=== PATIENT | male | born 1955 | race Caucasian/White ===

== ENCOUNTER 2017-04-16 16:51 | Inpatient (IN) | payer BC, OTHER ==
[~2017-04-16] VITALS: Ht 182.9 cm; Wt 120.8 kg
--- NOTE | ~2017-04-16 | S ---
[facility] [place] [address] SURGICAL PATH RPT PROCEDURE Name: PAULO MARIA Room #: 444-P ADM IN M.R.#: [id number] Admission: 04/16/17 Date of : 51 Discharge: Report #: [id number] Path Case #: [id number] PATHOLOGY REPORT COLLECTION DATE: 04/20/2017 RECEIVED DATE: 04/21/2017 SUBMITTING PHYS: Dr. Harry Rojas OTHER PHYS: Dr. Julio Cesar Holguin ADDENDUM REPORT (Order Date: 04/24/2017 13:46) ADDENDUM COMMENT: This addendum is issued subsequent to submitting additional sections of the skin margin as well as the bone margin. Both show viable tissue. The originally rendered diagnosis remains unchanged. (IUV:magalis; 04/24/2017) ELECTRONICALLY SIGNED BY: Roya Hathaway M.D. DATE/TIME:04/24/2017 16:07 SPECIMEN(S) RECEIVED: A.Left fifth toe and metatarsal * * * * * * * * * * * * FINAL DIAGNOSIS: Toe, left fifth toe and metatarsal, amputation: - Gangrenous necrosis along with ulceration as well as marked acute inflammation extending into underlying bone. - Focal osteomyelitis. - Separate fragment of metatarsal bone measuring 5.1 cm, with an unremarkable gross appearance. (IUV:db; 04/23/2017) PATHOLOGIST: Roya Hathaway M.D. REPORT ELECTRONICALLY SIGNED BY: Roya Hathaway M.D. DATE/TIME: 04/23/2017 15:43 * * * * * * * * * * * * GROSS PATHOLOGY: The specimen is received in formalin, labeled "Paulo Maria, left fifth toe and metatarsal" is a toe amputation specimen and separately received metatarsal bone. The metatarsal bone measures 5.1 x 2.1 x 1.5 cm. Outer surface has a bustillo to pink red, ragged to trabeculated appearance. The cut surface is bustillo to pink-red and trabeculated. [address] [address] SURGICAL PATH RPT PROCEDURE Name: PAULO MARIA Room #: 444-P ADM IN M.R.#: [id number] Admission: 04/16/17 Date of : 51 Discharge: Report #: [id number] Path Case #: [id number] mass lesions or cystic structures are noted. The toe amputation specimen measures 5.5 x 3.5 x 2.7 cm. The nail is present, brown yellow and thickened. The outer surface has a purple mccoy, desiccated to desquamated appearance. Thickened, leathery, brown-black necrotic tissue is noted throughout. The necrotic tissue extends to the soft tissue margin. A small strip of normal appearing skin is partially noted along the margin. The underlying soft tissue is brown green to bustillo red, softened and congested. The underlying bone has a brown red, trabeculated, congested appearance. No additional abnormalities are noted. A cross section of the specimen and section from the margin are submitted in cassette A1 after fixation and decalcification. (P; 04/22/2017) After initial microscopic examination, a longitudinal, full-thickness section of the amputation specimen is entirely submitted in cassettes A2-A4 after fixation and decalcification. ([facility]; 04/23/2017) CLINICAL HISTORY: Gangrene left fifth toe INITIAL CPT CODE(S): A; 37522, 53279 Professional services performed by [employer] at [facility] [address], [place] [address] Technical services performed by [employer] at [address] [place] [address], [address], [place] [address]. [facility] [address] [place] [address] PHONE: [phone] DIRECTOR: Lamont Ramirez M.D. * * * END OF REPORT * * *
--- NOTE | ~2017-04-16 | HC ---
[facility] [place] [address] CONSULTATION Name: ROBERTA MARIA Room #: 444-P ADM IN M.R.#: [id number] Admission: 04/16/17 Attend Phys: Julio Cesar Deluca Discharge: Date of : 51 Report #: [id number] THIS REPORT FOR: //name// CC: Julio Cesar Holguin DATE OF SERVICE: 04/19/2017 WOUND CARE CONSULTATION NOTE REASON FOR CONSULTATION: Cellulitis of left foot in a patient with diabetes mellitus type 2 and diabetic neuropathy. HISTORY: The patient is a very pleasant 62-year-old gentleman with diabetes mellitus type 2 who takes metformin but not insulin. He does have a history of diabetic neuropathy. The patient has not had any diabetic foot complications in the past. The patient did present himself to the Emergency Room at [facility] on 04/16 with a wound of his left foot with some pain, redness, swelling, a blackened area of skin and some bloody drainage, which he noted on his sock. The patient was admitted through the Emergency Room on 04/16, afebrile with the pulse of 75, creatinine of 1.3 and white blood count of 12.9. He has been on intravenous vancomycin and Zosyn. The patient states that since the time of his admission, the redness of the foot has actually decreased and its extent is limited now to the dorsum of his foot. The patient has been seen by the orthopedic team, Dr. Lowery on 04/17 and 04/18. The patient has been seen today by the orthopedic team, Dr. Harry Rojas. Wound care was asked to see the patient to see whether any form of local wound care will be helpful and also for the opinion as to whether surgery would be indicated. PAST MEDICAL HISTORY: 1. Obesity. 2. Diabetes mellitus type 2. The patient takes metformin. He does not take insulin. The patient denies any history of myocardial infarction or stroke. He is treated for hypertension with lisinopril and metoprolol. Hypercholesterolemia treated with Zocor. 3. History of hypertension. 4. History of diabetic peripheral neuropathy. HOME MEDICATIONS: Include lisinopril/hydrochlorothiazide, metformin 500 mg p.o. b.i.d., metoprolol 75 mg daily, Zocor 20 mg daily and aspirin 81 mg daily. RADIOGRAPHIC STUDIES: X-ray of the foot shows metallic foreign body, the plantar aspect over the fifth metatarsophalangeal joint. No bony destruction. LABORATORIES: White blood count 12.9. Creatinine 1.3. [address] [address] CONSULTATION Name: ROBERTA MARIA Room #: 444-P [facility] IN M.R.#: [id number] Admission: 04/16/17 Attend Phys: Julio Cesar Deluca Discharge: Date of : 51 Report #: [id number] PHYSICAL EXAMINATION: GENERAL: Shows an alert and healthy-appearing gentleman who appears his stated age of 62. VITAL SIGNS: Temperature 37.1, pulse 65, respirations 18 and blood pressure 135/57. HEENT: Mucous membranes are moist. NECK: Supple. CHEST: Shows nonlabored respirations. ABDOMEN: Obese and soft. EXTREMITIES: Upper extremities are normal. Examination of lower extremities shows that dorsalis pedis pulses are not easily palpable. Examination of the left foot shows erythema on the dorsum of the left foot, extending from the distal fifth metatarsal towards the midfoot. There is also a blister on the dorsum of the foot near the reddened area. The fifth toe is cyanotic and dusky. There is a black necrotic wound at the base of the fifth toe measuring approximately 5 cm x 3 cm extending from the dorsum of the foot laterally and then extending to the plantar surface of the foot. Slight pressure on this area shows some clear drainage, which is foul and malodorous. Clinical exam is consistent with gangrene. Extent of underlying necrosis is indeterminant. IMPRESSION AND PLAN: Diabetes mellitus type 2 with peripheral neuropathy and gangrenous wound at the base of the left fifth toe. Clinically, this is a soft tissue gangrene with a foul odor, spreading cellulitis to the dorsum of the foot. Discussed the case with Dr. Harry Roajs and I would recommend aggressive surgical intervention with debridement of necrotic tissue. Dr. Rojas indicated he may perform amputation of the left fifth toe, removal of all gangrenous tissue and do left fifth toe ray amputation. Would recommend leaving the wound open for local wound care. When the wound is clean, then we can perform wound VAC therapy. The patient will require arterial assessment of his lower extremities to assess for healing potential. Dr. Rojas and I discussed toe amputation and debridement, leaving open wound. In this situation, we will continue with IV antibiotics. Urgent surgery is being planned by Dr. Rojas. Would care team will follow. <ELECTRONICALLY SIGNED> By: Sanya Lagunas MD 04/20/17 1057 1605 1713 Sanya Lagunas MD /nt
--- NOTE | ~2017-04-16 | O ---
[facility] [place] [address] OPERATIVE REPORT Name: ROBERTA MARIA Room #: 444-P ADM IN M.R.#: [id number] Admission: 04/16/17 Attend Phys: Julio Cesar Deluca Discharge: Date of : 51 Report #: [id number] THIS REPORT FOR: //name// CC: Julio Cesar Holguin DATE OF SERVICE: 04/24/2017 PREOPERATIVE DIAGNOSIS: Left foot diabetic wound with skin edge necrosis. POSTOPERATIVE DIAGNOSIS: Left foot diabetic wound with skin edge necrosis. PROCEDURE: Debridement of left diabetic foot wound down to the fascia. SURGEON: Harry Rojas MD. LEAD SUPPLY WORKER: Patricia Mckinley PA-C. ANESTHESIA: LMA. ESTIMATED BLOOD LOSS: 10 mL. COMPLICATIONS: None. SPECIMENS: None. CONDITION UPON LEAVING THE OPERATING ROOM: Stable. INDICATIONS FOR PROCEDURE: The patient is a 61-year-old gentleman who has had diabetic left foot wound who previously had undergone fifth ray amputation with debridement of the eschar. He has been getting dressing changes on the floor and has developed wound edge necrosis of his wound and it was felt that debridement of this area was necessary to facilitate wound healing. DESCRIPTION OF PROCEDURE: Risks, benefits, alternatives, complications were discussed in detail with the patient including but not limited to risk of anesthesia, risk of damage to nerves or blood vessels, risk for continued infection and need for higher level amputation. Informed consent was obtained from the patient. Left foot was appropriately marked in the preoperative holding area. He was brought to the operating room and placed in supine position on operating room table. LMA anesthesia was induced without complication. He previously was on Zosyn for antibiotics. Left foot and lower extremity was prepped and draped in normal sterile fashion. Timeout was performed properly identifying the patient and procedure as well as the instrumentation. All in the operating room were in agreement. There was edge necrosis of the dorsal anterior aspect of the wound edge as well as the dorsal [facility] [address] [place] [address] OPERATIVE REPORT Name: ROBERTA MARIA Room #: 444-P [facility] IN ..#: [id number] Admission: 04/16/17 Attend Phys: Julio Cesar Deluca Discharge: Date of : 53 Report #: [id number] proximal wound edge and this was trimmed back with a 10 blade back to a bleeding skin edge. In addition, some of the deeper tissues that appeared necrotic were debrided sharply with a #10 blade down to the fascia. There was no exposed bone noted. This wound was then thoroughly irrigated with normal saline using pulse lavage. The wound was then dressed with Kerlix gauze soaked in Dakin solution and 4 x 4s, ABD, Webril and David wrap were applied. The patient tolerated this procedure well and went to the recovery room under the care of anesthesia postoperatively. By: 1128 1141 Harry Rojas MD /nt
--- NOTE | ~2017-04-16 | O ---
[facility] [place] [address] OPERATIVE REPORT Name: ROBERTA MARIA Room #: 444-P ADM IN M.R.#: [id number] Admission: 04/16/17 Attend Phys: Julio Cesar Deluca Discharge: Date of : 51 Report #: [id number] THIS REPORT FOR: //name// CC: Julio Cesar Holguin DATE OF SERVICE: 04/20/2017 PREOPERATIVE DIAGNOSIS: Left small toe gangrene with eschar. POSTOPERATIVE DIAGNOSES: 1. Left small toe gangrene with eschar. 2. Left lateral foot abscess. PROCEDURE: 1. Left fifth ray amputation. 2. Open wound packing of the left foot. SURGEON: Harry Rojas MD JUNIOR BOOKKEEPER: Patricia Mckinley PA-C ANESTHESIA: General. TOURNIQUET TIME: 13 minutes. SPECIMENS: Cultures were taken and sent. ESTIMATED BLOOD LOSS: 125 mL. SPECIMENS: None. CONDITION UPON LEAVING THE OPERATING ROOM: Stable. INDICATIONS FOR PROCEDURE: The patient is a 62-year-old gentleman who has diabetes. About a week or so ago, he developed necrotic tissue over his lateral foot with progressive discoloration of his small toe. He came into the hospital and was started on IV antibiotics. He developed an eschar over his lateral foot at the base of the fifth toe. Bone scan was performed showing to have no obvious osteomyelitis but there clearly was gangrene of the toe with possible abscess. After discussion with him and his , they elected for left fifth ray and possible fourth ray amputation as needed. DESCRIPTION OF PROCEDURE: Risks, benefits, alternatives, complications were discussed in detail with the patient including but not limited to risk of anesthesia, risk of damage to nerves, arteries, blood vessels, risk for [facility] [address] [place] [address] OPERATIVE REPORT Name: ROBERTA MARIA Room #: 444-P [facility] IN ..#: [id number] Admission: 04/16/17 Attend Phys: Julio Cesar Deluca Discharge: Date of : 51 Report #: [id number] infection, bleeding, risk for continued trouble with and need for further amputation. Informed consent was obtained from the patient. Left foot was appropriately marked in the preoperative holding area. He was brought to the operating room and placed in supine position on operating room table. LMA anesthesia was induced without complication. IV vancomycin was given for preoperative antibiotics. Tourniquet was placed on the left thigh. Left lower extremity was prepped and draped in normal sterile fashion. Timeout was performed properly identifying the patient and procedure as well as the instrumentation. All in the operating room were in agreement. An incision around the base of the small toe to include the rim of the scar was made with a 10 blade. This incision was then taken horizontally centered over the fifth metatarsal to the base of the fifth metatarsal. The small toe and eschar were then removed in 1 unit. Once we got the deep tissue, there was purulence noted with foul smelling and cultures of this were taken. The small toe was then amputated and sent to pathology. Dissection was then taken around the fifth metatarsal with Bovie cautery and this was skeletonized and the fifth metatarsal was amputated at its base, leaving the base intact. There was an abscess that tracked up the dorsum of the foot about 4 cm that was explored and cleaned. The wound was then thoroughly irrigated with normal saline. The incision of the lateral foot was closed with 3-0 nylon and the open wound was then packed with Kerlix, soaked in Dakin solution and dressings of ABD, Kerlix and David wrap were applied. The patient tolerated this procedure well and went to the recovery room under care of anesthesia postoperatively. <ELECTRONICALLY SIGNED> By: Harry Rojas MD 04/22/17 0725 0949 1115 Harry Rojas MD /nt
--- NOTE | ~2017-04-16 | HC ---
[facility] [place] [address] CONSULTATION Name: ROBERTA MARIA Room #: 444-P ADM IN M.R.#: [id number] Admission: 04/16/17 Attend Phys: Julio Cesar Deluca Discharge: Date of : 51 Report #: [id number] THIS REPORT FOR: //name// CC: Julio Cesar Holguin REASON FOR CONSULTATION: I was asked to evaluate concerning left fifth diabetic foot infection status post ray amputation. HISTORY OF PRESENT ILLNESS: The patient is a 62-year-old with underlying history of diabetes, hypertension, peripheral neuropathy. He presented on 04/16/2017 with increased pain, swelling and eschar over the lateral left foot and fifth toe. No specific trauma was identified predating this. During his evaluation, he had evidence of metallic foreign body in the soft tissues about the fifth MTP joint. This was resuscitated yesterday with a ray amputation. There was evidence of purulence at the operative site. There was ultrasound done before showing no venous obstruction. Arterial studies revealed biphasic to monophasic waveforms to within the distal left lower extremity with monophasic waveforms in the dorsalis pedis. No hemodynamically significant stenosis identified. Operative culture so far are revealing group B streptococcus. Gram stain showed moderate WBCs, many RBCs and few gram-positive cocci. Blood cultures remained negative. Perioperatively, the patient has been on vancomycin and Zosyn. Initially had fever that has resolved with maximum temperature of 100.1 degrees late last evening. ALLERGIES: None known. MEDICATIONS: As noted on his MAR including the vancomycin and Zosyn. PAST MEDICAL HISTORY: Obesity, diabetes, peripheral neuropathy, hypertension. FAMILY HISTORY: Noncontributory. SOCIAL HISTORY: He is a nonsmoker, no significant alcohol intake. REVIEW OF SYSTEMS: No cardiopulmonary, GI or complaints. PHYSICAL EXAMINATION: VITAL SIGNS: Afebrile and hemodynamically stable. GENERAL: Alert, cooperative and pleasant, in no acute distress. He was moderately obese. EXTREMITIES: Left lower extremity was evaluated with orthopedic surgery present. He had large wound to be the lateral left foot with areas of tissue necrosis and some dusky tissue laterally. He had erythema involving the dorsal forefoot and laterally. There was serous drainage. No granulation tissue yet present. He had decreased pulses in the foot. Both popliteal artery pulse was normal. No swelling or erythema up into the thigh. [address] [address] CONSULTATION Name: ROBERTA MARIA Room #: 444-P ADM IN M.R.#: [id number] Admission: 04/16/17 Attend Phys: Julio Cesar Deluca Discharge: Date of : 51 Report #: [id number] HEENT: Unremarkable. CHEST: Clear. HEART: Regular. ABDOMEN: Soft. LABORATORY STUDIES AND IMAGING STUDIES: As noted above. Cultures as noted above. Sodium 136, potassium 3.2, bicarbonate 33, creatinine 0.8. Hemoglobin 12.5, WBC 10.5, platelet count 304,000. Vancomycin trough was 14. IMPRESSION: Postoperative day #1 status post left fifth toe ray amputation for diabetic foot infection and abscess. I am still concerned about small vessel ischemia to the surrounding tissues. So far group B Streptococcus has been identified. No evidence of a large vessel obstruction on noninvasive arterial studies. PLAN: Recommend continuing IV antibiotic therapy. We will need to continue observation in the hospital to ensure the other surrounding areas of tissue would not need further debridement. I have discussed this with Orthopedic Surgery. The patient will have a PICC line placed and will continue IV antibiotic therapy with Zosyn pending further culture results. We will marrow antibiotic coverage further once further information is back from microbiology laboratory. <ELECTRONICALLY SIGNED> By: Stuart Kellogg MD 04/23/17 1257 1529 [id number] Stuart Kellogg MD /nt
[~2017-04-16 16:51] MED LIST: ANALGESIC325 MG PO; GLUCOPHAGE1000 MG PO; LISINOPRIL-HCT1 EAC2 PO; TOPROL XL25 MG PO; ZOCOR 20 MG TAB20 M1 PO
[2017-04-16 16:54] VITALS: BP 158/77
[2017-04-16] MEDS ORDERED: ASPIR 8181 M1 PO (17:18)
[2017-04-16 17:47] LABS: HEMATOCRIT 40.7 % (42.0-52.0); HEMOGLOBIN 14.1 gm/dL (14.0-18.0); MANUAL DIFF YES; MCH 30.3 pg (26.0-34.0); MCHC 34.7 g/dL (28.0-37.0); MCV 87.2 fL (80.0-100.0); PLATELET COUNT 307 thou/uL (150-400); RBC 4.66 mil/uL (4.50-6.00); RDW 12.5 % (10.5-14.5); WBC 12.9 thou/uL (4.0-11.0)
[2017-04-16 17:51] LABS: CALCIUM 9.6 mg/dL (8.5-10.1); CREATININE 1.3 mg/dL (0.7-1.3); POTASSIUM 3.6 mmol/L (3.5-5.1)
[2017-04-16 17:56] LABS: ALBUMIN 2.7 g/dL (3.4-5.0); TOTAL BILIRUBIN 0.6 mg/dL (<0.1-1.0); TOTAL PROTEIN 7.6 g/dL (6.4-8.2)
[2017-04-16 18:16] LABS: ABSOLUTE NEUTROPHILS 11.4 thou/uL (1.4-8.2); ANISOCYTOSIS 1+; TOTAL CELL COUNT 100
[2017-04-16 18:17] LABS: MICROCYTES SLIGHT
[2017-04-16 19:43] VITALS: BP 129/49
[2017-04-16 20:31] VITALS: BP 130/60
[2017-04-16 20:50] VITALS: BP 114/61
[2017-04-17 03:45] VITALS: BP 128/63
[2017-04-17 05:42] LABS: HEMATOCRIT 36.7 % (42.0-52.0); HEMOGLOBIN 12.9 gm/dL (14.0-18.0); MCH 30.4 pg (26.0-34.0); MCHC 35.1 g/dL (28.0-37.0); MCV 86.5 fL (80.0-100.0); RBC 4.24 mil/uL (4.50-6.00); RDW 12.2 % (10.5-14.5); WBC 9.5 thou/uL (4.0-11.0)
[2017-04-17 06:10] LABS: CALCIUM 8.7 mg/dL (8.5-10.1); CREATININE 1.1 mg/dL (0.7-1.3); POTASSIUM 3.2 mmol/L (3.5-5.1)
[2017-04-17 09:02] VITALS: BP 126/48
[2017-04-17 16:52] VITALS: BP 105/58
[2017-04-17 21:20] VITALS: BP 120/43
[2017-04-17] MEDS ORDERED: LIPITOR40 MG PO (22:56)
[2017-04-17] MEDS ORDERED: CARVEDILOL12.5 MG PO (22:56)
[2017-04-17] MEDS ORDERED: KLOR-CON 1010 MEQ PO ×2 (22:56→22:57)
[2017-04-17] MEDS ORDERED: COZAAR 50 MG TA50 M2 PO (22:58)
[2017-04-17] MEDS ORDERED: CHLORTHALIDONE25 MG PO (22:58)
[2017-04-17] MEDS ORDERED: MAXZIDE-25 MG1 EACH PO (22:58)
[2017-04-18 01:07] LABS: GLYCOHEMOGLOBIN (HGB A1C) 12.2 % (4.8-5.6)
[2017-04-18 05:10] VITALS: BP 139/55
[2017-04-18 08:00] VITALS: BP 152/78
[2017-04-18 16:00] VITALS: BP 147/67
[2017-04-18 19:15] VITALS: BP 136/53
[2017-04-19 03:20] VITALS: BP 147/59
[2017-04-19 05:29] LABS: CALCIUM 9.2 mg/dL (8.5-10.1); CREATININE 0.9 mg/dL (0.7-1.3); PHOSPHORUS 4.2 mg/dL (2.5-4.9); POTASSIUM 3.2 mmol/L (3.5-5.1)
[2017-04-19 08:03] VITALS: BP 135/57
[2017-04-19 16:11] VITALS: BP 148/65
[2017-04-19 19:15] VITALS: BP 138/59
[2017-04-20 04:43] VITALS: BP 127/56
[2017-04-20 05:11] LABS: HEMATOCRIT 36.7 % (42.0-52.0); HEMOGLOBIN 12.8 gm/dL (14.0-18.0); MCH 30.4 pg (26.0-34.0); MCV 86.8 fL (80.0-100.0); RBC 4.23 mil/uL (4.50-6.00); RDW 12.2 % (10.5-14.5); WBC 10.5 thou/uL (4.0-11.0)
[2017-04-20 05:23] LABS: CALCIUM 8.8 mg/dL (8.5-10.1); CREATININE 0.8 mg/dL (0.7-1.3); POTASSIUM 3.2 mmol/L (3.5-5.1)
[2017-04-20 05:28] LABS: INR 1.1; PROTIME 11.1 Seconds (9.3-11.4)
[2017-04-20 12:50] VITALS: BP 143/73
[2017-04-20 16:31] VITALS: BP 123/50
[2017-04-20 20:53] VITALS: BP 141/55
[2017-04-20 23:51] VITALS: BP 128/60
[2017-04-21 04:30] VITALS: BP 133/41
[2017-04-21 06:15] LABS: HEMATOCRIT 36.2 % (42.0-52.0); HEMOGLOBIN 12.5 gm/dL (14.0-18.0)
[2017-04-21 08:00] VITALS: BP 140/65
[2017-04-21 16:00] VITALS: BP 143/60
[2017-04-21 20:16] VITALS: BP 146/55
[2017-04-22 04:29] VITALS: BP 135/72
[2017-04-22 08:20] VITALS: BP 130/71
[2017-04-22 15:46] VITALS: BP 120/52
[2017-04-22 20:00] VITALS: BP 105/56
[2017-04-23 04:00] VITALS: BP 120/60
[2017-04-23 08:02] VITALS: BP 141/67
[2017-04-23 17:20] VITALS: BP 151/72
[2017-04-23 19:20] VITALS: BP 145/64
[2017-04-24 04:00] VITALS: BP 134/64
[2017-04-24 08:00] VITALS: BP 134/68
[2017-04-24 10:28] VITALS: BP 129/76
[2017-04-24 12:38] VITALS: BP 111/57
[2017-04-24] MEDS ORDERED: ZOSYN 4.5 GRAM4.5 GM IV (17:06)
[2017-04-24] MEDS ORDERED: HUMALOG100 UNIT/1 SUBQ ×2 (17:07)
[2017-04-24] MEDS ORDERED: LANTUS100 UNIT/M SUBQ (17:07)
== END 2017-04-24 18:37 | DRG 617 ==
LOC: ER 16:51 → EROBS 18:54 → 4S 18:54
PROVIDERS: Emergency Medicine; Hospitalist; Nurse Practitioner Acute Care; Orthopaedic Surgery
PROC: 0Y6N0ZF Detachment at Left Foot, Partial 5th Ray, Open Approach (ICD-10-PCS; principal; 2017-04-20)
PROC: 02HV33Z Insertion of Infusion Device into Superior Vena Cava, Percutaneous Approach (ICD-10-PCS; 2017-04-21)
PROC: B548ZZA Ultrasonography of Superior Vena Cava, Guidance (ICD-10-PCS; 2017-04-21)
PROC: 0JBR0ZZ Excision of Left Foot Subcutaneous Tissue and Fascia, Open Approach (ICD-10-PCS; 2017-04-24)
DX: E11.621 Type 2 diabetes mellitus with foot ulcer (principal); L03.116 Cellulitis of left lower limb; E87.1 Hypo-osmolality and hyponatremia; L02.612 Cutaneous abscess of left foot; I96 Gangrene, not elsewhere classified; I10 Essential (primary) hypertension; E11.42 Type 2 diabetes mellitus with diabetic polyneuropathy; E11.65 Type 2 diabetes mellitus with hyperglycemia; E66.9 Obesity, unspecified; E78.5 Hyperlipidemia, unspecified; Z79.899 Other long term (current) drug therapy; Z79.4 Long term (current) use of insulin; Z68.36 Body mass index [BMI] 36.0-36.9, adult
CPT/HCPCS: 10195; 27000; 50010; 50101; 50386; 50951; 53078; 56527; 57091; 62110; 62900; 70005

== ENCOUNTER → 2017-05-20 | Outpatient (CLI) | payer BC, OTHER ==
[~2017-05-20] MED LIST changes: +ASPIR 8181 M1 PO; +CARVEDILOL12.5 MG PO; +CHLORTHALIDONE25 MG PO; +COZAAR 50 MG TA50 M2 PO; +HUMALOG100 UNIT/1 SUBQ; +KLOR-CON 1010 MEQ PO; +LANTUS100 UNIT/M SUBQ; +LIPITOR40 MG PO; +MAXZIDE-25 MG1 EACH PO; +ZOSYN 4.5 GRAM4.5 GM IV
== END ==
LOC: HYPER 06:54
DX: T81.31XA Disruption of external operation (surgical) wound, not elsewhere classified, initial encounter (principal); E11.621 Type 2 diabetes mellitus with foot ulcer; L97.511 Non-pressure chronic ulcer of other part of right foot limited to breakdown of skin; Z79.4 Long term (current) use of insulin; Z79.84 Long term (current) use of oral hypoglycemic drugs; Y83.8 Other surgical procedures as the cause of abnormal reaction of the patient, or of later complication, without mention of misadventure at the time of the procedure

== ENCOUNTER → 2017-05-29 | Outpatient (CLI) | payer BC, OTHER | LOC: HYPER 07:04 | DX: T81.31XD Disruption of external operation (surgical) wound, not elsewhere classified, subsequent encounter (principal); E11.621 Type 2 diabetes mellitus with foot ulcer; L97.521 Non-pressure chronic ulcer of other part of left foot limited to breakdown of skin; Z68.31 Body mass index [BMI] 31.0-31.9, adult; Z79.4 Long term (current) use of insulin; Z79.84 Long term (current) use of oral hypoglycemic drugs; Y83.8 Other surgical procedures as the cause of abnormal reaction of the patient, or of later complication, without mention of misadventure at the time of the procedure ==

== ENCOUNTER → 2017-06-05 | Outpatient (CLI) | payer BC, OTHER | LOC: HYPER 07:11 | DX: T81.31XD Disruption of external operation (surgical) wound, not elsewhere classified, subsequent encounter (principal); E11.621 Type 2 diabetes mellitus with foot ulcer; L97.521 Non-pressure chronic ulcer of other part of left foot limited to breakdown of skin; Z86.31 Personal history of diabetic foot ulcer; Z79.4 Long term (current) use of insulin; Z79.84 Long term (current) use of oral hypoglycemic drugs; Y83.8 Other surgical procedures as the cause of abnormal reaction of the patient, or of later complication, without mention of misadventure at the time of the procedure ==

== ENCOUNTER → 2017-06-19 | Outpatient (CLI) | payer BC, OTHER | LOC: HYPER 07:11 | DX: T87.81 Dehiscence of amputation stump (principal); E11.621 Type 2 diabetes mellitus with foot ulcer; L97.521 Non-pressure chronic ulcer of other part of left foot limited to breakdown of skin; E11.51 Type 2 diabetes mellitus with diabetic peripheral angiopathy without gangrene; I70.262 Atherosclerosis of native arteries of extremities with gangrene, left leg; Z79.4 Long term (current) use of insulin; Z79.84 Long term (current) use of oral hypoglycemic drugs; Y83.5 Amputation of limb(s) as the cause of abnormal reaction of the patient, or of later complication, without mention of misadventure at the time of the procedure ==

== ENCOUNTER → 2017-06-26 | Outpatient (CLI) | payer BC, OTHER | LOC: HYPER 06:56 | DX: T87.81 Dehiscence of amputation stump (principal); L97.521 Non-pressure chronic ulcer of other part of left foot limited to breakdown of skin; E11.621 Type 2 diabetes mellitus with foot ulcer; I70.262 Atherosclerosis of native arteries of extremities with gangrene, left leg; E11.51 Type 2 diabetes mellitus with diabetic peripheral angiopathy without gangrene; Z79.4 Long term (current) use of insulin; Z79.84 Long term (current) use of oral hypoglycemic drugs; Y83.5 Amputation of limb(s) as the cause of abnormal reaction of the patient, or of later complication, without mention of misadventure at the time of the procedure ==

== ENCOUNTER → 2017-07-03 | Outpatient (CLI) | payer BC, OTHER | LOC: HYPER 06:57 | DX: T81.31XD Disruption of external operation (surgical) wound, not elsewhere classified, subsequent encounter (principal); E11.621 Type 2 diabetes mellitus with foot ulcer; L97.521 Non-pressure chronic ulcer of other part of left foot limited to breakdown of skin; Z68.31 Body mass index [BMI] 31.0-31.9, adult; Z79.4 Long term (current) use of insulin; Z79.84 Long term (current) use of oral hypoglycemic drugs; Y83.8 Other surgical procedures as the cause of abnormal reaction of the patient, or of later complication, without mention of misadventure at the time of the procedure ==

== ENCOUNTER → 2017-08-07 | Outpatient (CLI) | payer BC, OTHER | LOC: HYPER 06:40 | DX: T81.31XD Disruption of external operation (surgical) wound, not elsewhere classified, subsequent encounter (principal); E11.621 Type 2 diabetes mellitus with foot ulcer; L97.522 Non-pressure chronic ulcer of other part of left foot with fat layer exposed; Z79.4 Long term (current) use of insulin; Z79.84 Long term (current) use of oral hypoglycemic drugs; Y83.8 Other surgical procedures as the cause of abnormal reaction of the patient, or of later complication, without mention of misadventure at the time of the procedure ==

== ENCOUNTER → 2017-09-04 | Outpatient (CLI) | payer BC, OTHER ==
[~2017-09-04] MED LIST changes: +AMARYL2 MG PO; +ASPIRIN81 M2 PO; +ATORVASTATIN CA40 MG PO; +CEFTRIAXONE40 MG/M1; +CEFTRIAXONE40 MG/M1 IV; +CEFTRIAXONE40 MG/M1 IV PUSH; +HYDROCHLOROTHIA25 M2 PO; +LANTUS SUBQ; +LANTUS100 UNIT/M PO; +LOPRESSOR25 PO; -TOPROL XL25 MG PO
== END ==
LOC: HYPER 06:49
DX: T81.31XD Disruption of external operation (surgical) wound, not elsewhere classified, subsequent encounter (principal); E11.621 Type 2 diabetes mellitus with foot ulcer; L97.522 Non-pressure chronic ulcer of other part of left foot with fat layer exposed; I70.262 Atherosclerosis of native arteries of extremities with gangrene, left leg; Z86.31 Personal history of diabetic foot ulcer; Z79.4 Long term (current) use of insulin; Z79.84 Long term (current) use of oral hypoglycemic drugs; Y83.8 Other surgical procedures as the cause of abnormal reaction of the patient, or of later complication, without mention of misadventure at the time of the procedure

== ENCOUNTER → 2017-10-16 | Outpatient (CLI) | payer BC, OTHER | LOC: HYPER 10-02 15:28 | DX: T81.31XD Disruption of external operation (surgical) wound, not elsewhere classified, subsequent encounter (principal); E11.621 Type 2 diabetes mellitus with foot ulcer; L97.522 Non-pressure chronic ulcer of other part of left foot with fat layer exposed; Z79.4 Long term (current) use of insulin; Z79.84 Long term (current) use of oral hypoglycemic drugs; Y83.8 Other surgical procedures as the cause of abnormal reaction of the patient, or of later complication, without mention of misadventure at the time of the procedure ==

== ENCOUNTER → 2017-11-13 | Outpatient (CLI) | payer BC, OTHER | LOC: HYPER 06:47 | DX: T81.31XD Disruption of external operation (surgical) wound, not elsewhere classified, subsequent encounter (principal); E11.621 Type 2 diabetes mellitus with foot ulcer; L97.522 Non-pressure chronic ulcer of other part of left foot with fat layer exposed; I70.262 Atherosclerosis of native arteries of extremities with gangrene, left leg; E11.51 Type 2 diabetes mellitus with diabetic peripheral angiopathy without gangrene; L84 Corns and callosities; Z79.4 Long term (current) use of insulin; Z79.84 Long term (current) use of oral hypoglycemic drugs; Y83.8 Other surgical procedures as the cause of abnormal reaction of the patient, or of later complication, without mention of misadventure at the time of the procedure ==

== ENCOUNTER → 2018-01-26 | Outpatient (CLI) | payer BC, OTHER ==
[~2018-01-26] MED LIST changes: -AMARYL2 MG PO; -ASPIRIN81 M2 PO; -ATORVASTATIN CA40 MG PO; -CEFTRIAXONE40 MG/M1; -CEFTRIAXONE40 MG/M1 IV; -CEFTRIAXONE40 MG/M1 IV PUSH; -HYDROCHLOROTHIA25 M2 PO; -LANTUS SUBQ; -LANTUS100 UNIT/M PO; -LOPRESSOR25 PO; +TOPROL XL25 MG PO
== END ==
LOC: HYPER 12-11 15:06
DX: S90.822A Blister (nonthermal), left foot, initial encounter (principal); E11.621 Type 2 diabetes mellitus with foot ulcer; L97.522 Non-pressure chronic ulcer of other part of left foot with fat layer exposed; Z86.31 Personal history of diabetic foot ulcer; Z79.4 Long term (current) use of insulin; Z79.84 Long term (current) use of oral hypoglycemic drugs; X58.XXXA Exposure to other specified factors, initial encounter; Y93.89 Activity, other specified; Y92.89 Other specified places as the place of occurrence of the external cause; Y99.8 Other external cause status

== ENCOUNTER → 2018-02-04 | Outpatient (CLI) | payer BC, OTHER | LOC: HYPER 06:59 | DX: T81.31XD Disruption of external operation (surgical) wound, not elsewhere classified, subsequent encounter (principal); E11.621 Type 2 diabetes mellitus with foot ulcer; I70.262 Atherosclerosis of native arteries of extremities with gangrene, left leg; L97.522 Non-pressure chronic ulcer of other part of left foot with fat layer exposed; E11.52 Type 2 diabetes mellitus with diabetic peripheral angiopathy with gangrene; L84 Corns and callosities; Z79.4 Long term (current) use of insulin; Z79.84 Long term (current) use of oral hypoglycemic drugs; Y83.8 Other surgical procedures as the cause of abnormal reaction of the patient, or of later complication, without mention of misadventure at the time of the procedure ==

== ENCOUNTER → 2018-04-22 | Outpatient (CLI) | payer OTHER | LOC: HYPER 03-25 12:06 | DX: T81.31XD Disruption of external operation (surgical) wound, not elsewhere classified, subsequent encounter (principal); E11.621 Type 2 diabetes mellitus with foot ulcer; L97.522 Non-pressure chronic ulcer of other part of left foot with fat layer exposed; I70.262 Atherosclerosis of native arteries of extremities with gangrene, left leg; L84 Corns and callosities; Z79.84 Long term (current) use of oral hypoglycemic drugs; Z79.4 Long term (current) use of insulin; Y83.8 Other surgical procedures as the cause of abnormal reaction of the patient, or of later complication, without mention of misadventure at the time of the procedure ==

== ENCOUNTER → 2018-04-24 | Outpatient (CLI) | payer OTHER | LOC: HYPER 08:05 | DX: T81.31XD Disruption of external operation (surgical) wound, not elsewhere classified, subsequent encounter (principal); E11.621 Type 2 diabetes mellitus with foot ulcer; L97.522 Non-pressure chronic ulcer of other part of left foot with fat layer exposed; E11.40 Type 2 diabetes mellitus with diabetic neuropathy, unspecified; E78.5 Hyperlipidemia, unspecified; I10 Essential (primary) hypertension; Z79.84 Long term (current) use of oral hypoglycemic drugs; Z79.4 Long term (current) use of insulin; Y83.8 Other surgical procedures as the cause of abnormal reaction of the patient, or of later complication, without mention of misadventure at the time of the procedure ==

== ENCOUNTER → 2018-06-08 | Outpatient (CLI) | payer OTHER ==
[~2018-06-08] MED LIST changes: +AMARYL2 MG PO; +HYDROCHLOROTHIA25 M2 PO; +LANTUS SUBQ; +LOPRESSOR25 PO; -TOPROL XL25 MG PO
== END ==
LOC: HYPER 05-20 09:34
DX: T81.31XD Disruption of external operation (surgical) wound, not elsewhere classified, subsequent encounter (principal); E11.621 Type 2 diabetes mellitus with foot ulcer; L97.522 Non-pressure chronic ulcer of other part of left foot with fat layer exposed; I70.262 Atherosclerosis of native arteries of extremities with gangrene, left leg; L84 Corns and callosities; E11.52 Type 2 diabetes mellitus with diabetic peripheral angiopathy with gangrene; E11.610 Type 2 diabetes mellitus with diabetic neuropathic arthropathy; Z89.422 Acquired absence of other left toe(s); Z79.4 Long term (current) use of insulin; Z79.84 Long term (current) use of oral hypoglycemic drugs

== ENCOUNTER 2018-06-22 06:54 | Inpatient (IN) | payer OTHER ==
[~2018-06-22] VITALS: Ht 182.9 cm; Wt 136.1 kg
--- NOTE | ~2018-06-22 | HC ---
[facility] [place] [address] CONSULTATION Name: ROBERTA MARIA Room #: 432-P [facility] IN M.R.#: [id number] Admission: 06/22/18 Attend Phys: Oziel Christian MD Discharge: Date of : 51 Report #: [id number] THIS REPORT FOR: //name// CC: Chaz Christian DATE OF SERVICE: 06/22/2018 REASON FOR CONSULTATION: Left foot wound infection. HISTORY OF PRESENT ILLNESS: The patient is a 63-year-old who was diagnosed with a diabetic foot infection a year ago. He underwent ray amputation of the fifth digit. Subsequently, developed another ulceration in the similar area of the plantar mid foot laterally. This has been managed in the [facility] for several months now. He had been on and off oral antibiotic therapy. His initial cultures had revealed group B streptococcus. He has been off antibiotics now for quite some time. His last laboratory studies were unremarkable. He has had significant amount of peripheral edema that we tried to manage. His blood sugar control has been better. Over the last week or so, he has had increased drainage, which has been odorous. No fever, chills or sweats. He states his blood sugar control has been reasonable. PAST MEDICAL HISTORY: Left fifth ray amputation, hypertension, diabetes, peripheral vascular disease, peripheral neuropathy, venous stasis disease, obesity, hypertension. FAMILY HISTORY: Noncontributory. SOCIAL HISTORY: Nonsmoker, no significant alcohol intake. ALLERGIES: None. MEDICATIONS: As noted on his MAR, which were reviewed. REVIEW OF SYSTEMS: The patient denies any headache, cough, sputum, nausea, vomiting, diarrhea, dysuria or frequency. A 10-point review of systems in addition to the above remains negative. PHYSICAL EXAMINATION: GENERAL: He is alert and cooperative. Obese. In no acute distress. He had a left Cam boot in place. He was ambulatory. VITAL SIGNS: Temperature 97.8, pulse 71, blood pressure 148/80, respiratory rate 18. EYES: Without scleral icterus or conjunctivitis. MOUTH: Without mucositis or ulceration. NECK: Supple with no thyromegaly, mass or JVD. Back was midline. No [facility] [address] [place] [address] CONSULTATION Name: ROBERTA MARIA Room #: 432-P ADM IN M.R.#: [id number] Admission: 06/22/18 Attend Phys: Oziel Christian MD Discharge: Date of : 51 Report #: [id number] percussion tenderness. LYMPH: No palpable adenopathy. SKIN: No rashes or decubiti other than what we described on his left lower extremity examination. LUNGS: Clear. HEART: Regular, without murmur. ABDOMEN: Obese, soft, nontender, no hepatosplenomegaly or mass. EXTREMITIES: He had 2+ edema in the left lower extremity with ulceration over the lateral plantar foot with serous drainage which had some odor to it. There was some fibrinous debris and tunneling evident in the mid portion of the wound. Mild surrounding erythema. Had venous stasis changes to his pretibial skin. He had evidence of Charcot foot changes. Pulses were diminished in the foot along with diminished sensation. NEUROLOGIC: Nonfocal otherwise. Pulses in the left groin 1+. Could not palpate a good popliteal artery pulse on the left. Mood normal. LABORATORY STUDIES: Pending. IMPRESSION: 1. A 63-year-old diabetic with neuropathic foot, Charcot with nonhealing wound. I am suspecting deep tissue infection, possibly osteomyelitis. 2. Diabetes. 3. Hypertension. RECOMMENDATION: We will continue with Unasyn, pending further culture results. Obtain culture of the sinus tract, left foot. Obtain CBC, CMP, sedimentation rate. Obtain MRI scan and ultrasound of the lower extremities to assess for any large vessel obstruction. Continue with leg elevation and edema control. Monitor blood glucose and adjust insulin accordingly. <ELECTRONICALLY SIGNED> By: Stuart Kellogg MD 06/23/18 0821 1617 0236 Stuart Kellogg MD /nt
--- NOTE | ~2018-06-22 | HC ---
[facility] [place] [address] CONSULTATION Name: ROBERTA MARIA Room #: 432-P ADM IN M.R.#: [id number] Admission: 06/22/18 Attend Phys: Oziel Christian MD Discharge: Date of : 51 Report #: [id number] THIS REPORT FOR: //name// CC: Chaz Christian DATE OF SERVICE: 06/24/2018 CHIEF COMPLAINT: Left foot wound. HISTORY OF PRESENT ILLNESS: The patient is a pleasant 63-year-old male, who was admitted to [facility] 2 days ago with complaints of worsening left foot wound. The patient has been seeing Dr. Christian in Wound Care on an outpatient basis and reports that the wound seemed to get bigger about a week ago and started draining more at that time. He reports that Dr. Christian became concerned that the wound had become reinfected and had the patient admitted to [facility] for IV antibiotics and possible consideration of wound debridement. The patient reports that he has been using a boot at home for weightbearing to try to offload this foot, but states that he works from home and spends the majority of the day sitting at his computer. He only elevates the leg every couple of hours and then he reports he sits for about an hour with the leg elevated before going back to sitting at his desk to work. The patient reports that the 2 days he has been in the hospital, he feels like the swelling has improved tremendously in his left lower leg. PAST MEDICAL HISTORY: Significant for hypertension, type 2 diabetes. PAST SURGICAL HISTORY: Significant for left fifth ray amputation. SOCIAL HISTORY: The patient denies any tobacco or alcohol use. ALLERGIES: No known drug allergies. MEDICATIONS: Please see MAR for current medications and dosages. REVIEW OF SYSTEMS: The patient denies fevers, chills, vomiting, diarrhea. The patient does complain of numbness in the legs secondary to peripheral neuropathy. The remaining review of systems is negative. PHYSICAL EXAMINATION: VITAL SIGNS: Temperature 36.9, blood pressure 139/75, pulse 65, height 182 cm, weight 136 kilos. GENERAL: The patient is awake and alert. In no acute distress. EXTREMITIES: Trace edema in the left [place] [address] CONSULTATION Name: ROBERTA MARIA Room #: 432-P [facility] IN .R.#: [id number] Admission: 06/22/18 Attend Phys: Oziel Christian MD Discharge: Date of : 51 Report #: [id number] deformity of the foot noted. Bandages from the foot were removed to reveal an ulceration on the lateral plantar surface of the mid foot. There is some small amount of serous drainage on the bandages, no drainage expressible with light to moderate pressure. No erythema or warmth noted about the ulceration. The ulceration appears to be approximately 2 cm x 2 cm. The patient has diminished sensation in the left lower extremity as well as diminished pulses. LABORATORY DATA: Gram stain from the left foot wound performed on 06/22/2018 showed many gram-negative rods, many gram-positive cocci, few gram-positive rods and rare white blood cells. Aerobic and anaerobic culture results are pending. White cell count 9.0, hemoglobin 14.5. Random glucose taken on 06/23/2018 at 2104 is 252. IMAGING: Lower extremity MRI performed on 06/22/2018 shows a plantar lateral soft tissue ulcer beneath the level of the lateral cuboid and residual base of the fifth metatarsal with underlying cortical destruction and marrow edema suggestive of osteomyelitis. Multifocal mid foot arthrosis and marrow signal alteration within the bases of the second through fourth metatarsals and within the middle and lateral cuneiforms which is nonspecific and may be related to Charcot arthropathy. Multifocal osteomyelitis is considered less likely. IMPRESSION: Left foot wound on the lateral plantar surface of the mid foot, with MRI findings suggestive of possible osteomyelitis versus Charcot arthropathy. PLAN: Discussed the MRI findings with the patient, as well as the looks of his wound today appears to be improved from what has been documented in previous notes. The patient reports that he had an MRI ordered by Dr. Harry Rojas approximately 1 month ago. I would like to review this old MRI and compare it to the MRI performed 2 days ago and if there has been significant changes in the bony findings, then we may need to consider operative intervention. However, with the improvements that the patient has noted in his leg swelling as well as his wound over the last 2 days with rest, we discussed that operative intervention may not be necessary at this point. If we held off on operative intervention, we discussed that it would be essential for the patient to make significant amount of time to keep the left lower extremity elevated and to try to limit the amount of weightbearing that he does on the left lower extremity to allow for wound healing. Glycemic control is also crucial to wound healing. We will review the old MRI results and follow up with the patient once these have been reviewed. <ELECTRONICALLY SIGNED> By: BRITTANEY Castillo 06/24/18 1349 0717 [id number] BRITTANEY Castillo /nt
--- NOTE | ~2018-06-22 | D ---
[facility] [place] [address] DISCHARGE SUMMARY Name: ROBERTA MARIA Room #: 432-P [facility] IN M.R.#: [id number] Admission: 06/22/18 Attend Phys: Oziel Christian MD Discharge: 06/26/18 Date of : 51 Report #: [id number] THIS REPORT FOR: //name// CC: Chaz Christian DATE OF SERVICE: 06/26/2018 FINAL DIAGNOSES: 1. Diabetic foot ulcer, left foot. 2. Charcot joint deformity, left foot. 3. Diabetes type 2. HOSPITAL COURSE: The patient was admitted for treatment and evaluation of a nonhealing left diabetic foot wound with Charcot joint changes. He was followed by ID, Wound Care and Orthopedics. He underwent an MRI of the foot along with a venous Doppler arterial studies of the left leg. Culture apparently grew Klebsiella. Ultimately, the plan at this point after evaluation of all customer service consultant teams was wound care, IV antibiotics long-term and offloading actually to the point where he needs to stay off his foot essentially completely. Plans were made for home IV antibiotics with home health and wound care. DISPOSITION: He was discharged home with IV antibiotics per the ID service. He will follow up in the office in 1 week. By: 1344 1417 John Hooker MD /nt
--- NOTE | ~2018-06-22 | H ---
[facility] [place] [address] HISTORY AND PHYSICAL Name: ROBERTA MARIA Room #: 432-P ADM IN M.R.#: [id number] Admission: 06/22/18 Attend Phys: Oziel Christian MD Discharge: Date of : 51 Report #: [id number] THIS REPORT FOR: //name// CC: Chaz Christian DATE OF SERVICE: 06/22/2018 CHIEF COMPLAINT: Diabetic foot wound. HISTORY OF PRESENT ILLNESS: The patient is a 63-year-old gentleman who has been struggling with a left diabetic foot wound for some time. He was admitted by Dr. Christian today from the wound care clinic. Apparently, the wound to the sole of his foot has become deeper in the last 2 weeks and there is a foul odor. There is concern for underlying infection. PAST MEDICAL HISTORY: Hypertension, diabetes type 2. PAST SURGICAL HISTORY: Unknown. FAMILY HISTORY: Noncontributory. SOCIAL HISTORY: No chronic alcohol or tobacco use. ALLERGIES: None. MEDICATIONS: Lipitor 40 mg, metoprolol 25 mg b.i.d., losartan 50 mg, aspirin 81 mg, hydrochlorothiazide 12.5 mg, Lantus 48 units at bedtime. REVIEW OF SYSTEMS: He denies headache, chest pain, shortness of breath, abdominal pain, nausea, vomiting, diarrhea, constipation, dysuria, syncope. OBJECTIVE: VITAL SIGNS: Per nursing note. GENERAL: He is awake and alert, sitting up in the chair, in no distress. HEAD AND NECK: Unremarkable. LUNGS: Clear. HEART: Regular. ABDOMEN: Soft, normoactive bowel sounds. EXTREMITIES: No edema on the right. The left has a walking boot in place. I did not take the dressing off as he has previously seen Dr. Christian earlier today. ASSESSMENT: 1. Nonhealing diabetic left foot wound. 2. Diabetes type 2. [facility] [address] [place] [address] HISTORY AND PHYSICAL Name: ROBERTA MARIA Room #: 432-P [facility] IN [facility]#: [id number] Admission: 06/22/18 Attend Phys: Oziel Christian MD Discharge: Date of : 51 Report #: [id number] 3. Hypertension. PLAN: Lab and cultures will be obtained along with an MRI of the foot. Dr. Kellogg and Dr. Christian will be consulted for wound care and antibiotic management. <ELECTRONICALLY SIGNED> By: John Hooker MD 06/22/18 1517 1350 1414 John Hooker MD /nt
[~2018-06-22 06:54] MED LIST changes: -AMARYL2 MG PO; -HYDROCHLOROTHIA25 M2 PO; -LANTUS SUBQ
[2018-06-22] MEDS ORDERED: HYDROCHLOROTHIA25 M2 PO (13:01)
[2018-06-22] MEDS ORDERED: LANTUS SUBQ (13:01)
[2018-06-22 15:00] VITALS: BP 148/80
[2018-06-22 18:10] LABS: ABSOLUTE NEUTROPHILS 6.3 thou/uL (1.4-8.2); BASOPHILS 0.4 % (0.0-2.0); EOSINOPHILS 1.4 % (0.0-3.0); HEMOGLOBIN 14.5 gm/dL (14.0-18.0); LYMPHOCYTES 20.5 % (24.0-44.0); MCH 30.3 pg (26.0-34.0); MCHC 34.5 g/dL (28.0-37.0); MCV 87.7 fL (80.0-100.0); MONOCYTES 7.4 % (1.0-8.0); PLATELET COUNT 268 thou/uL (150-400); POLYS 70.3 % (36.0-66.0); RBC 4.79 mil/uL (4.50-6.00); RDW 12.5 % (10.5-14.5)
[2018-06-22 18:24] LABS: ALBUMIN 3.2 g/dL (3.4-5.0); CALCIUM 9.9 mg/dL (8.5-10.1); CREATININE 0.9 mg/dL (0.7-1.3); POTASSIUM 3.8 mmol/L (3.5-5.1); TOTAL BILIRUBIN 0.5 mg/dL (<0.1-1.0); TOTAL PROTEIN 7.9 g/dL (6.4-8.2)
[2018-06-22 20:03] VITALS: BP 150/76
[2018-06-23] MEDS ORDERED: AMARYL2 MG PO (02:50)
[2018-06-23 05:03] VITALS: BP 129/68
[2018-06-23 07:49] VITALS: BP 151/90
[2018-06-23 16:26] VITALS: BP 137/78
[2018-06-23 19:32] VITALS: BP 139/67
[2018-06-24 05:30] VITALS: BP 139/75
[2018-06-24 08:00] VITALS: BP 141/90
[2018-06-24 16:42] VITALS: BP 152/76
[2018-06-24 20:31] VITALS: BP 160/90
[2018-06-25 06:07] VITALS: BP 152/85
[2018-06-25 14:55] VITALS: BP 151/83
[2018-06-25 16:02] VITALS: BP 151/83
[2018-06-25 16:53] VITALS: BP 155/76
[2018-06-25 20:00] VITALS: BP 148/62
[2018-06-26 05:40] VITALS: BP 124/62
[2018-06-26 07:19] VITALS: BP 156/59
[2018-06-26 13:25] VITALS: BP 151/83
[2018-06-26] MEDS ORDERED: CEFTRIAXONE40 MG/M1 (16:41)
[2018-06-26] MEDS ORDERED: CEFTRIAXONE40 MG/M1 IV ×2 (16:54→16:56)
[2018-06-26] MEDS ORDERED: CEFTRIAXONE40 MG/M1 IV PUSH (17:01)
[2018-06-26] MEDS ORDERED: KLOR-CON 1010 MEQ PO (17:06)
[2018-06-26] MEDS ORDERED: LANTUS100 UNIT/M PO (17:08)
[2018-06-26] MEDS ORDERED: AMARYL2 MG PO (17:08)
[2018-06-26] MEDS ORDERED: LOPRESSOR25 PO (17:09)
[2018-06-26] MEDS ORDERED: ATORVASTATIN CA40 MG PO (17:09)
[2018-06-26] MEDS ORDERED: ASPIRIN81 M2 PO (17:09)
== END 2018-06-26 16:20 | disposition home health service (06) | DRG 540 ==
LOC: HYPER 06:54 → 4E 12:11 → HYPER 13:11 → 4E 06-26 16:20
PROVIDERS: Internal Medicine Geriatric Medicine
PROC: B54MZZA Ultrasonography of Right Upper Extremity Veins, Guidance (ICD-10-PCS; principal; 2018-06-25)
PROC: 05HD33Z Insertion of Infusion Device into Right Cephalic Vein, Percutaneous Approach (ICD-10-PCS; principal; 2018-06-25)
DX: M86.8X7 Other osteomyelitis, ankle and foot (principal); Z68.41 Body mass index [BMI] 40.0-44.9, adult; E11.69 Type 2 diabetes mellitus with other specified complication; E11.621 Type 2 diabetes mellitus with foot ulcer; E11.65 Type 2 diabetes mellitus with hyperglycemia; L08.9 Local infection of the skin and subcutaneous tissue, unspecified; I10 Essential (primary) hypertension; E11.51 Type 2 diabetes mellitus with diabetic peripheral angiopathy without gangrene; E11.42 Type 2 diabetes mellitus with diabetic polyneuropathy; E66.9 Obesity, unspecified; E11.610 Type 2 diabetes mellitus with diabetic neuropathic arthropathy; Z89.9 Acquired absence of limb, unspecified; Z79.82 Long term (current) use of aspirin; Z79.899 Other long term (current) drug therapy
CPT/HCPCS: 10783; 27000

== ENCOUNTER → 2018-06-29 | Outpatient (CLI) | payer OTHER ==
[~2018-06-29] MED LIST changes: +AMARYL2 MG PO; +ASPIRIN81 M2 PO; +ATORVASTATIN CA40 MG PO; +CEFTRIAXONE40 MG/M1; +CEFTRIAXONE40 MG/M1 IV; +CEFTRIAXONE40 MG/M1 IV PUSH; +HYDROCHLOROTHIA25 M2 PO; +LANTUS SUBQ; +LANTUS100 UNIT/M PO
== END ==
LOC: NUC 06:51
DX: S91.302D Unspecified open wound, left foot, subsequent encounter (principal); L03.116 Cellulitis of left lower limb; M19.011 Primary osteoarthritis, right shoulder; M19.012 Primary osteoarthritis, left shoulder; M17.0 Bilateral primary osteoarthritis of knee; X58.XXXD Exposure to other specified factors, subsequent encounter

== ENCOUNTER → 2018-08-07 | Outpatient (CLI) | payer OTHER | LOC: HYPER 07:43 | DX: E11.621 Type 2 diabetes mellitus with foot ulcer (principal); L97.522 Non-pressure chronic ulcer of other part of left foot with fat layer exposed; L84 Corns and callosities; E11.610 Type 2 diabetes mellitus with diabetic neuropathic arthropathy; E11.42 Type 2 diabetes mellitus with diabetic polyneuropathy; E11.51 Type 2 diabetes mellitus with diabetic peripheral angiopathy without gangrene; I70.262 Atherosclerosis of native arteries of extremities with gangrene, left leg; Z79.4 Long term (current) use of insulin; Z79.84 Long term (current) use of oral hypoglycemic drugs; Z89.429 Acquired absence of other toe(s), unspecified side ==

== ENCOUNTER → 2018-09-21 | Outpatient (CLI) | payer OTHER | LOC: HYPER 06:54 | DX: E11.621 Type 2 diabetes mellitus with foot ulcer (principal); L97.522 Non-pressure chronic ulcer of other part of left foot with fat layer exposed; L84 Corns and callosities; E11.610 Type 2 diabetes mellitus with diabetic neuropathic arthropathy; E11.42 Type 2 diabetes mellitus with diabetic polyneuropathy; E11.51 Type 2 diabetes mellitus with diabetic peripheral angiopathy without gangrene; I70.262 Atherosclerosis of native arteries of extremities with gangrene, left leg; Z79.4 Long term (current) use of insulin; Z79.84 Long term (current) use of oral hypoglycemic drugs; Z89.422 Acquired absence of other left toe(s) ==

== ENCOUNTER → 2018-10-19 | Outpatient (CLI) | payer OTHER | LOC: HYPER 06:50 | DX: E11.621 Type 2 diabetes mellitus with foot ulcer (principal); L97.522 Non-pressure chronic ulcer of other part of left foot with fat layer exposed; E11.610 Type 2 diabetes mellitus with diabetic neuropathic arthropathy; E11.42 Type 2 diabetes mellitus with diabetic polyneuropathy; E11.51 Type 2 diabetes mellitus with diabetic peripheral angiopathy without gangrene; I70.262 Atherosclerosis of native arteries of extremities with gangrene, left leg; L84 Corns and callosities; Z79.4 Long term (current) use of insulin; Z79.84 Long term (current) use of oral hypoglycemic drugs ==

== ENCOUNTER → 2018-11-02 | Outpatient (CLI) | payer OTHER | LOC: HYPER 06:50 | DX: E11.621 Type 2 diabetes mellitus with foot ulcer (principal); L97.522 Non-pressure chronic ulcer of other part of left foot with fat layer exposed; L84 Corns and callosities; E11.610 Type 2 diabetes mellitus with diabetic neuropathic arthropathy; E11.42 Type 2 diabetes mellitus with diabetic polyneuropathy; E11.51 Type 2 diabetes mellitus with diabetic peripheral angiopathy without gangrene; I70.262 Atherosclerosis of native arteries of extremities with gangrene, left leg; Z79.4 Long term (current) use of insulin; Z79.84 Long term (current) use of oral hypoglycemic drugs ==

== ENCOUNTER → 2018-11-09 | Outpatient (CLI) | payer OTHER | LOC: HYPER 06:55 | DX: E11.621 Type 2 diabetes mellitus with foot ulcer (principal); L97.522 Non-pressure chronic ulcer of other part of left foot with fat layer exposed; L84 Corns and callosities; I70.262 Atherosclerosis of native arteries of extremities with gangrene, left leg; E11.610 Type 2 diabetes mellitus with diabetic neuropathic arthropathy; E11.42 Type 2 diabetes mellitus with diabetic polyneuropathy; E11.51 Type 2 diabetes mellitus with diabetic peripheral angiopathy without gangrene; Z89.422 Acquired absence of other left toe(s); Z79.4 Long term (current) use of insulin; Z79.84 Long term (current) use of oral hypoglycemic drugs ==

== ENCOUNTER → 2018-11-18 | Outpatient (CLI) | payer OTHER | LOC: HYPER 06:52 | DX: E11.621 Type 2 diabetes mellitus with foot ulcer (principal); L97.522 Non-pressure chronic ulcer of other part of left foot with fat layer exposed; E11.610 Type 2 diabetes mellitus with diabetic neuropathic arthropathy; L03.116 Cellulitis of left lower limb; E11.51 Type 2 diabetes mellitus with diabetic peripheral angiopathy without gangrene; E11.42 Type 2 diabetes mellitus with diabetic polyneuropathy; I70.262 Atherosclerosis of native arteries of extremities with gangrene, left leg; L84 Corns and callosities; Z79.4 Long term (current) use of insulin; Z86.31 Personal history of diabetic foot ulcer; Z79.84 Long term (current) use of oral hypoglycemic drugs ==

== ENCOUNTER → 2018-12-02 | Outpatient (CLI) | payer OTHER | LOC: HYPER 06:53 | DX: E11.621 Type 2 diabetes mellitus with foot ulcer (principal); L97.522 Non-pressure chronic ulcer of other part of left foot with fat layer exposed; E11.610 Type 2 diabetes mellitus with diabetic neuropathic arthropathy; E11.42 Type 2 diabetes mellitus with diabetic polyneuropathy; E11.51 Type 2 diabetes mellitus with diabetic peripheral angiopathy without gangrene; I70.262 Atherosclerosis of native arteries of extremities with gangrene, left leg; L84 Corns and callosities; E66.9 Obesity, unspecified; Z68.36 Body mass index [BMI] 36.0-36.9, adult; Z79.4 Long term (current) use of insulin; Z79.84 Long term (current) use of oral hypoglycemic drugs ==

== ENCOUNTER → 2018-12-16 | Outpatient (CLI) | payer OTHER | LOC: HYPER 06:46 | DX: E11.621 Type 2 diabetes mellitus with foot ulcer (principal); L97.522 Non-pressure chronic ulcer of other part of left foot with fat layer exposed; L84 Corns and callosities; I70.262 Atherosclerosis of native arteries of extremities with gangrene, left leg; E11.610 Type 2 diabetes mellitus with diabetic neuropathic arthropathy; G62.9 Polyneuropathy, unspecified; E11.51 Type 2 diabetes mellitus with diabetic peripheral angiopathy without gangrene; E66.9 Obesity, unspecified; Z68.36 Body mass index [BMI] 36.0-36.9, adult; Z79.4 Long term (current) use of insulin; Z79.84 Long term (current) use of oral hypoglycemic drugs ==

== ENCOUNTER → 2019-01-06 | Outpatient (CLI) | payer OTHER | LOC: HYPER 06:33 | DX: E11.621 Type 2 diabetes mellitus with foot ulcer (principal); L97.522 Non-pressure chronic ulcer of other part of left foot with fat layer exposed; L03.116 Cellulitis of left lower limb; L84 Corns and callosities; I70.262 Atherosclerosis of native arteries of extremities with gangrene, left leg; E11.610 Type 2 diabetes mellitus with diabetic neuropathic arthropathy; E11.42 Type 2 diabetes mellitus with diabetic polyneuropathy; E11.51 Type 2 diabetes mellitus with diabetic peripheral angiopathy without gangrene; E66.9 Obesity, unspecified; Z79.4 Long term (current) use of insulin; Z79.84 Long term (current) use of oral hypoglycemic drugs; Z68.36 Body mass index [BMI] 36.0-36.9, adult ==

== ENCOUNTER → 2019-02-05 | Outpatient (CLI) | payer OTHER | LOC: ULTRA 08:42 | DX: M79.89 Other specified soft tissue disorders (principal); R60.9 Edema, unspecified ==

== ENCOUNTER → 2019-03-17 | Outpatient (CLI) | payer OTHER | LOC: HYPER 02-03 09:28 | DX: E11.621 Type 2 diabetes mellitus with foot ulcer (principal); L97.522 Non-pressure chronic ulcer of other part of left foot with fat layer exposed; L84 Corns and callosities; E11.610 Type 2 diabetes mellitus with diabetic neuropathic arthropathy; E11.42 Type 2 diabetes mellitus with diabetic polyneuropathy; E11.51 Type 2 diabetes mellitus with diabetic peripheral angiopathy without gangrene; I70.262 Atherosclerosis of native arteries of extremities with gangrene, left leg; Z79.4 Long term (current) use of insulin; Z79.84 Long term (current) use of oral hypoglycemic drugs; E66.9 Obesity, unspecified; Z68.36 Body mass index [BMI] 36.0-36.9, adult; Z86.31 Personal history of diabetic foot ulcer ==

== ENCOUNTER → 2019-05-12 | Outpatient (CLI) | payer OTHER | LOC: HYPER 08:00 | DX: E11.621 Type 2 diabetes mellitus with foot ulcer (principal); L97.522 Non-pressure chronic ulcer of other part of left foot with fat layer exposed; E11.610 Type 2 diabetes mellitus with diabetic neuropathic arthropathy; L03.116 Cellulitis of left lower limb; E11.42 Type 2 diabetes mellitus with diabetic polyneuropathy; E11.51 Type 2 diabetes mellitus with diabetic peripheral angiopathy without gangrene; I70.262 Atherosclerosis of native arteries of extremities with gangrene, left leg; L84 Corns and callosities; Z86.31 Personal history of diabetic foot ulcer; Z79.4 Long term (current) use of insulin; Z79.84 Long term (current) use of oral hypoglycemic drugs ==

== ENCOUNTER → 2019-05-31 | Outpatient (CLI) | payer OTHER | LOC: HYPER 06:58 | DX: E11.621 Type 2 diabetes mellitus with foot ulcer (principal); L97.522 Non-pressure chronic ulcer of other part of left foot with fat layer exposed; E11.610 Type 2 diabetes mellitus with diabetic neuropathic arthropathy; L03.116 Cellulitis of left lower limb; I70.262 Atherosclerosis of native arteries of extremities with gangrene, left leg; E11.42 Type 2 diabetes mellitus with diabetic polyneuropathy; E11.51 Type 2 diabetes mellitus with diabetic peripheral angiopathy without gangrene; Z86.31 Personal history of diabetic foot ulcer; Z79.4 Long term (current) use of insulin; Z79.84 Long term (current) use of oral hypoglycemic drugs; L84 Corns and callosities ==

== ENCOUNTER → 2019-06-21 | Outpatient (CLI) | payer OTHER | LOC: HYPER 08:15 | DX: I70.245 Atherosclerosis of native arteries of left leg with ulceration of other part of foot (principal); E11.621 Type 2 diabetes mellitus with foot ulcer; L97.522 Non-pressure chronic ulcer of other part of left foot with fat layer exposed; L03.116 Cellulitis of left lower limb; L84 Corns and callosities; E11.610 Type 2 diabetes mellitus with diabetic neuropathic arthropathy; E11.42 Type 2 diabetes mellitus with diabetic polyneuropathy; E11.52 Type 2 diabetes mellitus with diabetic peripheral angiopathy with gangrene; I96 Gangrene, not elsewhere classified; Z79.4 Long term (current) use of insulin ==

== ENCOUNTER → 2019-07-20 | Outpatient (CLI) | payer OTHER | LOC: HYPER 07:37 | DX: E11.621 Type 2 diabetes mellitus with foot ulcer (principal); L97.522 Non-pressure chronic ulcer of other part of left foot with fat layer exposed; E11.610 Type 2 diabetes mellitus with diabetic neuropathic arthropathy; E11.42 Type 2 diabetes mellitus with diabetic polyneuropathy; E11.51 Type 2 diabetes mellitus with diabetic peripheral angiopathy without gangrene; I70.262 Atherosclerosis of native arteries of extremities with gangrene, left leg; L03.116 Cellulitis of left lower limb; L84 Corns and callosities; Z86.31 Personal history of diabetic foot ulcer; Z79.4 Long term (current) use of insulin; Z79.84 Long term (current) use of oral hypoglycemic drugs ==

== ENCOUNTER → 2019-09-06 | Outpatient (CLI) | payer OTHER | LOC: HYPER 10:27 | DX: E11.621 Type 2 diabetes mellitus with foot ulcer (principal); L97.522 Non-pressure chronic ulcer of other part of left foot with fat layer exposed; I70.262 Atherosclerosis of native arteries of extremities with gangrene, left leg; L03.116 Cellulitis of left lower limb; L84 Corns and callosities; E11.610 Type 2 diabetes mellitus with diabetic neuropathic arthropathy; E11.42 Type 2 diabetes mellitus with diabetic polyneuropathy; E11.51 Type 2 diabetes mellitus with diabetic peripheral angiopathy without gangrene; Z79.4 Long term (current) use of insulin; Z79.84 Long term (current) use of oral hypoglycemic drugs ==

== ENCOUNTER → 2019-11-29 | Outpatient (CLI) | payer OTHER | LOC: HYPER 07:52 | DX: E11.621 Type 2 diabetes mellitus with foot ulcer (principal); I70.245 Atherosclerosis of native arteries of left leg with ulceration of other part of foot; L97.522 Non-pressure chronic ulcer of other part of left foot with fat layer exposed; S90.822A Blister (nonthermal), left foot, initial encounter; E11.610 Type 2 diabetes mellitus with diabetic neuropathic arthropathy; L03.116 Cellulitis of left lower limb; L84 Corns and callosities; E11.42 Type 2 diabetes mellitus with diabetic polyneuropathy; E11.52 Type 2 diabetes mellitus with diabetic peripheral angiopathy with gangrene; I96 Gangrene, not elsewhere classified; Z79.4 Long term (current) use of insulin; Z79.82 Long term (current) use of aspirin; X58.XXXA Exposure to other specified factors, initial encounter; Y93.89 Activity, other specified; Y92.89 Other specified places as the place of occurrence of the external cause; Y99.8 Other external cause status ==

== ENCOUNTER → 2019-12-09 | Outpatient (CLI) | payer OTHER | LOC: SJCVC 13:23 | DX: I45.2 Bifascicular block (principal); R94.31 Abnormal electrocardiogram [ECG] [EKG]; I10 Essential (primary) hypertension; I25.10 Atherosclerotic heart disease of native coronary artery without angina pectoris; Z79.82 Long term (current) use of aspirin; Z79.899 Other long term (current) drug therapy ==

== ENCOUNTER → 2020-01-10 | Outpatient (CLI) | payer OTHER | LOC: HYPER 08:04 | DX: E11.621 Type 2 diabetes mellitus with foot ulcer (principal); I70.245 Atherosclerosis of native arteries of left leg with ulceration of other part of foot; L97.522 Non-pressure chronic ulcer of other part of left foot with fat layer exposed; E11.42 Type 2 diabetes mellitus with diabetic polyneuropathy; E11.52 Type 2 diabetes mellitus with diabetic peripheral angiopathy with gangrene; I96 Gangrene, not elsewhere classified; E11.610 Type 2 diabetes mellitus with diabetic neuropathic arthropathy; L84 Corns and callosities; L03.116 Cellulitis of left lower limb; Z79.4 Long term (current) use of insulin ==

== ENCOUNTER → 2020-02-21 | Outpatient (CLI) | payer OTHER | LOC: HYPER 08:52 | PROVIDERS: ATTEND Emergency Medicine Emergency Medical Services | DX: E11.621 Type 2 diabetes mellitus with foot ulcer (principal); I70.245 Atherosclerosis of native arteries of left leg with ulceration of other part of foot; L97.522 Non-pressure chronic ulcer of other part of left foot with fat layer exposed; L03.116 Cellulitis of left lower limb; L84 Corns and callosities; I70.262 Atherosclerosis of native arteries of extremities with gangrene, left leg; E11.610 Type 2 diabetes mellitus with diabetic neuropathic arthropathy; E11.42 Type 2 diabetes mellitus with diabetic polyneuropathy; E11.51 Type 2 diabetes mellitus with diabetic peripheral angiopathy without gangrene; Z89.422 Acquired absence of other left toe(s); Z79.4 Long term (current) use of insulin; Z79.84 Long term (current) use of oral hypoglycemic drugs ==

== ENCOUNTER → 2020-03-13 | Outpatient (CLI) | payer OTHER | LOC: HYPER 07:08 | PROVIDERS: ATTEND Emergency Medicine Emergency Medical Services | DX: E11.621 Type 2 diabetes mellitus with foot ulcer (principal); I70.245 Atherosclerosis of native arteries of left leg with ulceration of other part of foot; L97.522 Non-pressure chronic ulcer of other part of left foot with fat layer exposed; S90.822D Blister (nonthermal), left foot, subsequent encounter; L03.116 Cellulitis of left lower limb; L84 Corns and callosities; E11.610 Type 2 diabetes mellitus with diabetic neuropathic arthropathy; E11.42 Type 2 diabetes mellitus with diabetic polyneuropathy; E11.51 Type 2 diabetes mellitus with diabetic peripheral angiopathy without gangrene; Z79.4 Long term (current) use of insulin; X58.XXXD Exposure to other specified factors, subsequent encounter ==

== ENCOUNTER → 2020-03-31 | Outpatient (CLI) | payer OTHER | LOC: HYPER 08:05 | PROVIDERS: ATTEND Emergency Medicine | DX: E11.621 Type 2 diabetes mellitus with foot ulcer (principal); I70.245 Atherosclerosis of native arteries of left leg with ulceration of other part of foot; L97.522 Non-pressure chronic ulcer of other part of left foot with fat layer exposed; L03.116 Cellulitis of left lower limb; E11.610 Type 2 diabetes mellitus with diabetic neuropathic arthropathy; E11.42 Type 2 diabetes mellitus with diabetic polyneuropathy; E11.52 Type 2 diabetes mellitus with diabetic peripheral angiopathy with gangrene; I96 Gangrene, not elsewhere classified; L84 Corns and callosities; Z79.4 Long term (current) use of insulin; Z79.82 Long term (current) use of aspirin ==

== ENCOUNTER → 2020-04-14 | Outpatient (CLI) | payer OTHER | LOC: HYPER 08:22 | PROVIDERS: ATTEND Emergency Medicine Emergency Medical Services | DX: E11.621 Type 2 diabetes mellitus with foot ulcer (principal); I70.245 Atherosclerosis of native arteries of left leg with ulceration of other part of foot; L97.522 Non-pressure chronic ulcer of other part of left foot with fat layer exposed; S90.822D Blister (nonthermal), left foot, subsequent encounter; E11.610 Type 2 diabetes mellitus with diabetic neuropathic arthropathy; L03.116 Cellulitis of left lower limb; E11.42 Type 2 diabetes mellitus with diabetic polyneuropathy; L84 Corns and callosities; Z79.4 Long term (current) use of insulin; Z79.82 Long term (current) use of aspirin; X58.XXXD Exposure to other specified factors, subsequent encounter ==

== ENCOUNTER → 2020-05-01 | Outpatient (CLI) | payer OTHER | LOC: HYPER 08:35 | PROVIDERS: ATTEND Emergency Medicine Emergency Medical Services | DX: S90.822D Blister (nonthermal), left foot, subsequent encounter (principal); E11.621 Type 2 diabetes mellitus with foot ulcer; I70.245 Atherosclerosis of native arteries of left leg with ulceration of other part of foot; L97.522 Non-pressure chronic ulcer of other part of left foot with fat layer exposed; L03.116 Cellulitis of left lower limb; E11.42 Type 2 diabetes mellitus with diabetic polyneuropathy; E11.52 Type 2 diabetes mellitus with diabetic peripheral angiopathy with gangrene; I96 Gangrene, not elsewhere classified; E11.610 Type 2 diabetes mellitus with diabetic neuropathic arthropathy; L84 Corns and callosities; Z79.82 Long term (current) use of aspirin; Z79.4 Long term (current) use of insulin; X58.XXXD Exposure to other specified factors, subsequent encounter ==

== ENCOUNTER → 2020-05-22 | Outpatient (CLI) | payer OTHER | LOC: HYPER 08:02 | PROVIDERS: ATTEND Emergency Medicine Emergency Medical Services | DX: E11.621 Type 2 diabetes mellitus with foot ulcer (principal); I70.245 Atherosclerosis of native arteries of left leg with ulceration of other part of foot; L97.522 Non-pressure chronic ulcer of other part of left foot with fat layer exposed; S90.822D Blister (nonthermal), left foot, subsequent encounter; L03.116 Cellulitis of left lower limb; E11.610 Type 2 diabetes mellitus with diabetic neuropathic arthropathy; E11.42 Type 2 diabetes mellitus with diabetic polyneuropathy; E11.52 Type 2 diabetes mellitus with diabetic peripheral angiopathy with gangrene; I96 Gangrene, not elsewhere classified; L84 Corns and callosities; Z79.4 Long term (current) use of insulin; Z79.82 Long term (current) use of aspirin; X58.XXXD Exposure to other specified factors, subsequent encounter ==

== ENCOUNTER → 2020-06-09 | Outpatient (CLI) | payer OTHER | LOC: HYPER 08:06 | PROVIDERS: ATTEND Emergency Medicine | DX: E11.621 Type 2 diabetes mellitus with foot ulcer (principal); L97.522 Non-pressure chronic ulcer of other part of left foot with fat layer exposed; L03.116 Cellulitis of left lower limb; L84 Corns and callosities; I70.262 Atherosclerosis of native arteries of extremities with gangrene, left leg; E11.610 Type 2 diabetes mellitus with diabetic neuropathic arthropathy; E11.42 Type 2 diabetes mellitus with diabetic polyneuropathy; E11.51 Type 2 diabetes mellitus with diabetic peripheral angiopathy without gangrene; E66.01 Morbid (severe) obesity due to excess calories; Z79.4 Long term (current) use of insulin; Z68.36 Body mass index [BMI] 36.0-36.9, adult ==

== ENCOUNTER → 2020-07-05 | Outpatient (CLI) | payer OTHER | LOC: HYPER 09:06 | PROVIDERS: ATTEND Emergency Medicine | DX: E11.621 Type 2 diabetes mellitus with foot ulcer (principal); L97.522 Non-pressure chronic ulcer of other part of left foot with fat layer exposed; E11.610 Type 2 diabetes mellitus with diabetic neuropathic arthropathy; I70.262 Atherosclerosis of native arteries of extremities with gangrene, left leg; L03.116 Cellulitis of left lower limb; L84 Corns and callosities; E11.42 Type 2 diabetes mellitus with diabetic polyneuropathy; E11.51 Type 2 diabetes mellitus with diabetic peripheral angiopathy without gangrene; E66.01 Morbid (severe) obesity due to excess calories; Z79.4 Long term (current) use of insulin; Z68.36 Body mass index [BMI] 36.0-36.9, adult ==

== ENCOUNTER → 2020-07-05 | Outpatient (CLI) | payer OTHER | LOC: SJCVCIMAG 06-28 09:09 | PROVIDERS: ATTEND Internal Medicine Cardiovascular Disease | DX: I45.2 Bifascicular block (principal); I49.3 Ventricular premature depolarization; I25.10 Atherosclerotic heart disease of native coronary artery without angina pectoris; I10 Essential (primary) hypertension; R60.9 Edema, unspecified; E78.00 Pure hypercholesterolemia, unspecified; Z79.899 Other long term (current) drug therapy ==

== ENCOUNTER → 2020-08-07 | Outpatient (CLI) | payer OTHER | LOC: HYPER 08:40 | PROVIDERS: ATTEND Emergency Medicine Emergency Medical Services | DX: E11.621 Type 2 diabetes mellitus with foot ulcer (principal); L97.522 Non-pressure chronic ulcer of other part of left foot with fat layer exposed; E11.610 Type 2 diabetes mellitus with diabetic neuropathic arthropathy; I70.262 Atherosclerosis of native arteries of extremities with gangrene, left leg; L03.116 Cellulitis of left lower limb; L84 Corns and callosities; E11.51 Type 2 diabetes mellitus with diabetic peripheral angiopathy without gangrene; E11.42 Type 2 diabetes mellitus with diabetic polyneuropathy; E66.01 Morbid (severe) obesity due to excess calories; Z79.4 Long term (current) use of insulin; Z68.36 Body mass index [BMI] 36.0-36.9, adult ==

== ENCOUNTER → 2020-09-18 | Outpatient (CLI) | payer OTHER | LOC: HYPER 07:59 | PROVIDERS: ATTEND Emergency Medicine Emergency Medical Services | DX: E11.621 Type 2 diabetes mellitus with foot ulcer (principal); L97.522 Non-pressure chronic ulcer of other part of left foot with fat layer exposed; E11.610 Type 2 diabetes mellitus with diabetic neuropathic arthropathy; I70.262 Atherosclerosis of native arteries of extremities with gangrene, left leg; L03.116 Cellulitis of left lower limb; L84 Corns and callosities; E11.51 Type 2 diabetes mellitus with diabetic peripheral angiopathy without gangrene; E11.42 Type 2 diabetes mellitus with diabetic polyneuropathy; E66.01 Morbid (severe) obesity due to excess calories; Z79.4 Long term (current) use of insulin; Z68.36 Body mass index [BMI] 36.0-36.9, adult ==

== ENCOUNTER → 2020-11-13 | Outpatient (CLI) | payer OTHER | LOC: HYPER 07:49 | PROVIDERS: ATTEND Emergency Medicine Emergency Medical Services | DX: E11.621 Type 2 diabetes mellitus with foot ulcer (principal); L97.522 Non-pressure chronic ulcer of other part of left foot with fat layer exposed; L03.116 Cellulitis of left lower limb; L84 Corns and callosities; E11.610 Type 2 diabetes mellitus with diabetic neuropathic arthropathy; I70.262 Atherosclerosis of native arteries of extremities with gangrene, left leg; E11.51 Type 2 diabetes mellitus with diabetic peripheral angiopathy without gangrene; E11.42 Type 2 diabetes mellitus with diabetic polyneuropathy; E66.01 Morbid (severe) obesity due to excess calories; Z79.4 Long term (current) use of insulin; Z68.36 Body mass index [BMI] 36.0-36.9, adult ==

== ENCOUNTER → 2021-01-03 | Outpatient (CLI) | payer OTHER | LOC: SJCVC 11:03 | PROVIDERS: ATTEND Internal Medicine Cardiovascular Disease | DX: R94.31 Abnormal electrocardiogram [ECG] [EKG] (principal); I45.2 Bifascicular block; I25.10 Atherosclerotic heart disease of native coronary artery without angina pectoris; I10 Essential (primary) hypertension; R60.9 Edema, unspecified; E78.00 Pure hypercholesterolemia, unspecified; E11.9 Type 2 diabetes mellitus without complications; Z79.82 Long term (current) use of aspirin; Z79.899 Other long term (current) drug therapy; Z82.49 Family history of ischemic heart disease and other diseases of the circulatory system ==

== ENCOUNTER → 2021-01-29 | Outpatient (CLI) | payer OTHER | LOC: HYPER 07:51 | PROVIDERS: ATTEND Emergency Medicine Emergency Medical Services | DX: E11.621 Type 2 diabetes mellitus with foot ulcer (principal); I70.245 Atherosclerosis of native arteries of left leg with ulceration of other part of foot; L97.522 Non-pressure chronic ulcer of other part of left foot with fat layer exposed; E11.52 Type 2 diabetes mellitus with diabetic peripheral angiopathy with gangrene; I96 Gangrene, not elsewhere classified; E11.610 Type 2 diabetes mellitus with diabetic neuropathic arthropathy; E11.40 Type 2 diabetes mellitus with diabetic neuropathy, unspecified; L84 Corns and callosities; E66.9 Obesity, unspecified; Z68.36 Body mass index [BMI] 36.0-36.9, adult; Z79.82 Long term (current) use of aspirin; Z79.899 Other long term (current) drug therapy; Z79.4 Long term (current) use of insulin ==

== ENCOUNTER → 2021-04-09 | Outpatient (CLI) | payer OTHER | LOC: HYPER 07:38 | PROVIDERS: ATTEND Emergency Medicine Emergency Medical Services | DX: E11.621 Type 2 diabetes mellitus with foot ulcer (principal); I70.245 Atherosclerosis of native arteries of left leg with ulceration of other part of foot; L97.522 Non-pressure chronic ulcer of other part of left foot with fat layer exposed; E11.610 Type 2 diabetes mellitus with diabetic neuropathic arthropathy; E11.42 Type 2 diabetes mellitus with diabetic polyneuropathy; E11.52 Type 2 diabetes mellitus with diabetic peripheral angiopathy with gangrene; I96 Gangrene, not elsewhere classified; L84 Corns and callosities; E66.9 Obesity, unspecified; Z68.36 Body mass index [BMI] 36.0-36.9, adult; Z79.4 Long term (current) use of insulin; Z89.422 Acquired absence of other left toe(s) ==

== ENCOUNTER → 2021-06-04 | Outpatient (CLI) | payer OTHER | LOC: HYPER 07:31 | PROVIDERS: ATTEND Emergency Medicine Emergency Medical Services | DX: E11.621 Type 2 diabetes mellitus with foot ulcer (principal); I70.245 Atherosclerosis of native arteries of left leg with ulceration of other part of foot; L97.522 Non-pressure chronic ulcer of other part of left foot with fat layer exposed; E11.610 Type 2 diabetes mellitus with diabetic neuropathic arthropathy; E11.42 Type 2 diabetes mellitus with diabetic polyneuropathy; E11.52 Type 2 diabetes mellitus with diabetic peripheral angiopathy with gangrene; I96 Gangrene, not elsewhere classified; L84 Corns and callosities; E66.9 Obesity, unspecified; Z68.36 Body mass index [BMI] 36.0-36.9, adult; Z79.4 Long term (current) use of insulin; Z79.82 Long term (current) use of aspirin; Z79.899 Other long term (current) drug therapy ==

== ENCOUNTER → 2021-07-05 | Outpatient (CLI) | payer OTHER | LOC: SJCVC 13:11 | PROVIDERS: ATTEND Internal Medicine Cardiovascular Disease | DX: R94.31 Abnormal electrocardiogram [ECG] [EKG] (principal); I11.9 Hypertensive heart disease without heart failure; I25.10 Atherosclerotic heart disease of native coronary artery without angina pectoris; R60.9 Edema, unspecified; E78.00 Pure hypercholesterolemia, unspecified; E11.9 Type 2 diabetes mellitus without complications; E78.5 Hyperlipidemia, unspecified; Z79.82 Long term (current) use of aspirin; Z79.84 Long term (current) use of oral hypoglycemic drugs; Z79.899 Other long term (current) drug therapy; Z72.89 Other problems related to lifestyle ==

== ENCOUNTER 2021-08-02 10:36 | Emergency (ER) | payer OTHER ==
[~2021-08-02] VITALS: Ht 182.9 cm; Wt 129.3 kg
[2021-08-02] MEDS ORDERED: CEPHALEXIN500 MG PO (10:53)
[2021-08-02] MEDS ORDERED: OZEMPIC0.25 MG/0. SUBQ (10:55)
[2021-08-02] MEDS ORDERED: CARVEDILOL12.5 MG PO (10:56)
[2021-08-02] MEDS ORDERED: LOSARTAN POTAS100 MG PO (10:57)
[2021-08-02] MEDS ORDERED: HYDROCHLOROTHIA25 M1 PO (10:57)
[2021-08-02 11:18] LABS: HEMOGLOBIN 15.1 gm/dL (14.0-18.0)
[2021-08-02 11:19] LABS: CALCIUM 9.3 mg/dL (8.5-10.1); CREATININE 1.2 mg/dL (0.7-1.3)
[2021-08-02 11:20] LABS: ABSOLUTE NEUTROPHILS 3.8 thou/uL (1.4-8.2); BASOPHILS 0.3 % (0.0-2.0); HEMATOCRIT 45.2 % (42.0-52.0); LYMPHOCYTES 17.1 % (24.0-44.0); MCH 30.3 pg (26.0-34.0); MCHC 33.4 g/dL (28.0-37.0); MCV 90.6 fL (80.0-100.0); MONOCYTES 6.9 % (1.0-8.0); PLATELET COUNT 199 thou/uL (150-400); POLYS 74.7 % (36.0-66.0); RBC 4.99 mil/uL (4.50-6.00); RDW 13.3 % (10.5-14.5); WBC 5.2 thou/uL (4.0-11.0)
[2021-08-02 11:29] LABS: ALBUMIN 3.3 g/dL (3.4-5.0); TOTAL BILIRUBIN 0.5 mg/dL (0.2-1.0); TOTAL PROTEIN 7.5 g/dL (6.4-8.2)
[2021-08-02] MEDS ORDERED: NITROSTAT0.4 M1 SUBLING (13:43)
[2021-08-02 14:03] VITALS: BP 168/78
--- NOTE | 2021-08-03 10:00 | EKG ---
[place] [address] [place] [address] ELECTROCARDIOGRAM REPORT Name: ROBERTA MARIA [id number] Admission: 08/02/21 Attend Phys: Discharge: 08/02/21 Date of : 51 Report #: [id number] [facility] ED Test Date: 2021-08-02 Test Time: 10:40:06 Pat Name: ROBERTA MARIA Department: Room: Gender: School Lunch Manager: : 1955 Requested By: John Draper Order Number: [id number] MD: Oliver Rojo Measurements Intervals [place] Rate: 69 P: -23 NV: 202 QRS: -81 QRSD: 170 T: 29 QT: 441 QTc: 473 Interpretive Statements Sinus rhythm RBBB and LAFB Probable left ventricular hypertrophy No previous ECG available for comparison Electronically Signed On 08-03-2021 10:00:07 CHARGE ACCOUNT CLERK by Oliver Rojo [email or web address] <ELECTRONICALLY SIGNED> By: Oliver Rojo MD 08/03/21 1000 1040 1040 Oliver Rojo MD /EPI
== END 2021-08-02 14:05 | disposition home or self-care (01) ==
LOC: ER 10:36
PROVIDERS: Emergency Medicine
DX: R07.89 Other chest pain (principal); Z20.822 Contact with and (suspected) exposure to COVID-19; I10 Essential (primary) hypertension; E11.40 Type 2 diabetes mellitus with diabetic neuropathy, unspecified; E78.00 Pure hypercholesterolemia, unspecified; Z79.82 Long term (current) use of aspirin; Z79.891 Long term (current) use of opiate analgesic; Z79.899 Other long term (current) drug therapy

== ENCOUNTER → 2021-08-06 | Outpatient (CLI) | payer OTHER ==
[~2021-08-06] MED LIST changes: +CEPHALEXIN500 MG PO; +HYDROCHLOROTHIA25 M1 PO; +LOSARTAN POTAS100 MG PO; +NITROSTAT0.4 M1 SUBLING; +OZEMPIC0.25 MG/0. SUBQ
== END ==
LOC: HYPER 07:37
PROVIDERS: ATTEND Emergency Medicine Emergency Medical Services
DX: E11.621 Type 2 diabetes mellitus with foot ulcer (principal); I70.245 Atherosclerosis of native arteries of left leg with ulceration of other part of foot; L97.522 Non-pressure chronic ulcer of other part of left foot with fat layer exposed; E11.610 Type 2 diabetes mellitus with diabetic neuropathic arthropathy; E11.42 Type 2 diabetes mellitus with diabetic polyneuropathy; E11.52 Type 2 diabetes mellitus with diabetic peripheral angiopathy with gangrene; I96 Gangrene, not elsewhere classified; L84 Corns and callosities; E66.9 Obesity, unspecified; Z68.36 Body mass index [BMI] 36.0-36.9, adult; Z79.4 Long term (current) use of insulin; Z79.899 Other long term (current) drug therapy; Z89.422 Acquired absence of other left toe(s)

== ENCOUNTER → 2021-08-09 | Outpatient (CLI) | payer OTHER | LOC: SJCVC 12:32 | PROVIDERS: ATTEND Internal Medicine Cardiovascular Disease | DX: I11.9 Hypertensive heart disease without heart failure (principal); R94.31 Abnormal electrocardiogram [ECG] [EKG]; I44.0 Atrioventricular block, first degree; I10 Essential (primary) hypertension; I25.10 Atherosclerotic heart disease of native coronary artery without angina pectoris; E78.00 Pure hypercholesterolemia, unspecified; R60.9 Edema, unspecified; E11.9 Type 2 diabetes mellitus without complications; Z79.82 Long term (current) use of aspirin; Z79.899 Other long term (current) drug therapy; Z98.890 Other specified postprocedural states; Z72.89 Other problems related to lifestyle ==

== ENCOUNTER → 2021-08-24 | Outpatient (CLI) | payer OTHER | LOC: HYPER 07:52 | PROVIDERS: ATTEND Emergency Medicine Emergency Medical Services | DX: T87.89 Other complications of amputation stump (principal); E11.621 Type 2 diabetes mellitus with foot ulcer; I70.245 Atherosclerosis of native arteries of left leg with ulceration of other part of foot; L97.522 Non-pressure chronic ulcer of other part of left foot with fat layer exposed; E11.52 Type 2 diabetes mellitus with diabetic peripheral angiopathy with gangrene; I96 Gangrene, not elsewhere classified; E11.610 Type 2 diabetes mellitus with diabetic neuropathic arthropathy; E11.42 Type 2 diabetes mellitus with diabetic polyneuropathy; Z79.4 Long term (current) use of insulin; L84 Corns and callosities; Y83.5 Amputation of limb(s) as the cause of abnormal reaction of the patient, or of later complication, without mention of misadventure at the time of the procedure ==

== ENCOUNTER → 2021-09-10 | Outpatient (CLI) | payer OTHER | LOC: HYPER 07:50 | PROVIDERS: ATTEND Emergency Medicine Emergency Medical Services | DX: T87.89 Other complications of amputation stump (principal); E11.621 Type 2 diabetes mellitus with foot ulcer; L97.422 Non-pressure chronic ulcer of left heel and midfoot with fat layer exposed; I70.262 Atherosclerosis of native arteries of extremities with gangrene, left leg; L84 Corns and callosities; R60.0 Localized edema; E11.610 Type 2 diabetes mellitus with diabetic neuropathic arthropathy; E66.01 Morbid (severe) obesity due to excess calories; E11.42 Type 2 diabetes mellitus with diabetic polyneuropathy; Z79.4 Long term (current) use of insulin; Z68.36 Body mass index [BMI] 36.0-36.9, adult; Y83.5 Amputation of limb(s) as the cause of abnormal reaction of the patient, or of later complication, without mention of misadventure at the time of the procedure ==

== ENCOUNTER → 2021-10-08 | Outpatient (CLI) | payer OTHER | LOC: HYPER 07:41 | PROVIDERS: ATTEND Emergency Medicine Emergency Medical Services | DX: T87.89 Other complications of amputation stump (principal); E11.621 Type 2 diabetes mellitus with foot ulcer; L97.522 Non-pressure chronic ulcer of other part of left foot with fat layer exposed; I70.262 Atherosclerosis of native arteries of extremities with gangrene, left leg; L84 Corns and callosities; R60.0 Localized edema; E11.610 Type 2 diabetes mellitus with diabetic neuropathic arthropathy; E11.51 Type 2 diabetes mellitus with diabetic peripheral angiopathy without gangrene; E66.01 Morbid (severe) obesity due to excess calories; E11.42 Type 2 diabetes mellitus with diabetic polyneuropathy; Z79.4 Long term (current) use of insulin; Z68.36 Body mass index [BMI] 36.0-36.9, adult; Y83.5 Amputation of limb(s) as the cause of abnormal reaction of the patient, or of later complication, without mention of misadventure at the time of the procedure ==

== ENCOUNTER → 2021-10-26 | Outpatient (CLI) | payer OTHER | LOC: HYPER 07:51 | PROVIDERS: ATTEND Emergency Medicine Emergency Medical Services | DX: E11.621 Type 2 diabetes mellitus with foot ulcer (principal); I70.245 Atherosclerosis of native arteries of left leg with ulceration of other part of foot; L97.522 Non-pressure chronic ulcer of other part of left foot with fat layer exposed; E11.610 Type 2 diabetes mellitus with diabetic neuropathic arthropathy; E11.42 Type 2 diabetes mellitus with diabetic polyneuropathy; E11.52 Type 2 diabetes mellitus with diabetic peripheral angiopathy with gangrene; I96 Gangrene, not elsewhere classified; L84 Corns and callosities; R60.0 Localized edema; E66.9 Obesity, unspecified; Z68.36 Body mass index [BMI] 36.0-36.9, adult; Z79.4 Long term (current) use of insulin; Z79.84 Long term (current) use of oral hypoglycemic drugs; Z79.899 Other long term (current) drug therapy ==